=== PATIENT | male | born 1960 ===

== ENCOUNTER 2018-05-30 15:50 | Emergency (ER) | payer SELFPAY ==
[~2018-05-30] VITALS: Ht 182.9 cm; Wt 88.6 kg
[2018-05-30 15:59] VITALS: Ht 182.9 cm; Wt 88.6 kg
[2018-05-30] MEDS ORDERED: NORCO 5/325 TAB1 TAB PO (16:01)
[2018-05-30] MEDS ORDERED: OMEPRAZOLE20 M1 PO (16:01)
[2018-05-30 16:22] LABS: BASOPHILS 0.9 % (0-2); HEMOGLOBIN 15.4 g/dL (13.5-17.5); IMMATURE GRANULOCYTES 0.5 % (0-5); MCH 30.3 pg (26.0-34.0); MCV 86.6 fL (80.0-100.0); MEAN PLATELET VOLUME 9.3 fL (7.4-10.4); MONOCYTES 6.2 % (2-11); NEUTROPHILS 46.4 % (40-80); PLATELET COUNT 202 10x3/uL (130-400); RBC 5.08 10x6/uL (4.20-6.10); RDW 15.5 % (11.5-14.5); WBC 5.8 10x3/uL (4.8-10.8)
[2018-05-30 16:31] LABS: INR 1.63 (0.85-1.17)
[2018-05-30 16:36] LABS: ALBUMIN 4.1 g/dL (3.4-5.0); ALKALINE PHOSPHATASE 44 U/L (46-116); ALT (SGPT) 35 U/L (10-68); BILIRUBIN - TOTAL 1.46 mg/dL (0.2-1.3); CALC OSMOLALITY 277 mosm/kg (275-300); CALCIUM 8.7 mg/dL (8.5-10.1); CARBON DIOXIDE 26.3 mmol/L (21.0-32.0); CHLORIDE - SERUM 100 mmol/L (98-107); GLUCOSE 81 mg/dL (74-106); POTASSIUM - SERUM 3.6 mmol/L (3.5-5.1); PROTEIN - SERUM 7.4 g/dL (6.4-8.2); SODIUM 141 mmol/L (136-145); UREA NITROGEN 8 mg/dL (7-18); eGFR NON AFRICAN AMERICAN 82 mL/min (90-120)
[2018-05-30 16:45] LABS: CKMB 1.7 U/L (0.0-3.6); CREATINE KINASE 226 UL (21-232); MAGNESIUM - SERUM 2.1 mg/dL (1.8-2.4)
[2018-05-30 16:47] LABS: TROPONIN-I < 0.017 ng/mL (0.000-0.060)
[2018-05-30 19:54] VITALS: BP 129/80
== END 2018-05-30 19:45 | disposition other institution (70) ==
LOC: D.ER 15:50
PROVIDERS: Family Medicine
DX: I71.00 Dissection of unspecified site of aorta (principal); M54.6 Pain in thoracic spine; M25.512 Pain in left shoulder; K21.9 Gastro-esophageal reflux disease without esophagitis; F17.200 Nicotine dependence, unspecified, uncomplicated